=== PATIENT | male | born 1995 | race Caucasian/White ===

== ENCOUNTER 2017-05-06 19:07 | Emergency (ER) | payer SELFPAY ==
[~2017-05-06] VITALS: Ht 185.4 cm; Wt 74.8 kg
--- NOTE | 2017-05-06 20:00 | NUR ---
Pt BIB SELF. C/O HEART RACING FOR THE PAST FEW HOURS. FEELS LIKE HE IS HAVING A HEART ATTACK. NO OTHER C/O PAIN, DENIES CHEST PAIN, NO RADIATING PAIN. Pt IS SHOWING SIGNS OF TACHYCARDIA, WITH HR 119, BP 137/89, R 22, O2 SAT ON RA 97%. Pt IS GOWNED AND WAITING IN ER BED 11.
--- NOTE | 2017-05-06 20:02 | NUR ---
BEING SEEN BY
--- NOTE | 2017-05-06 20:11 | NUR ---
CXR BEING DONE AT BEDSIDE
[2017-05-06] MEDS ORDERED: LORAZEPAM 1 MG TABLET ONE (20:12)
[2017-05-06] MEDS ORDERED: LORAZEPAM 1 MG TABLET PO ONE (20:30)
[2017-05-06 20:52] VITALS: BP 135/87
== END 2017-05-06 20:53 | disposition home or self-care (01) ==
LOC: ER 19:10
DX: F41.9 Anxiety disorder, unspecified (principal); F12.90 Cannabis use, unspecified, uncomplicated; F17.210 Nicotine dependence, cigarettes, uncomplicated; Z87.19 Personal history of other diseases of the digestive system
CPT/HCPCS: 71010; 99283; A4606; Z7610